=== PATIENT | male | born 1995 | race Caucasian/White ===

== ENCOUNTER 2018-10-08 20:54 | Emergency (ER) | payer BC ==
[~2018-10-08] VITALS: Ht 175.3 cm; Wt 75.0 kg
[2018-10-08] MEDS ORDERED: NORCO 325 MG-51 TAB PO (23:43)
[2018-10-09 00:41] VITALS: BP 130/49; PULSE 86
== END 2018-10-09 00:44 | disposition home or self-care (01) ==
LOC: COL.ER 20:54
DX: S43.004A Unspecified dislocation of right shoulder joint, initial encounter (principal); W18.39XA Other fall on same level, initial encounter; Y93.67 Activity, basketball
CPT/HCPCS: J1170; J2250; J2405; J2704; J3010; J7040